=== PATIENT | female | born 1930 | race Caucasian/White ===

== ENCOUNTER 2017-04-26 18:02 | Emergency (ER) | payer MEDICARE ==
[~2017-04-26] VITALS: Ht 162.6 cm; Wt 45.4 kg
[2017-04-26 18:07] VITALS: BP_SYST 138
[2017-04-26] MEDS ORDERED: TETRACAINE HCL 0.5% OPHTHALMIC DROPS 15 ML OP ONE (19:15)
[2017-04-26] MEDS ORDERED: IBUPROFEN 400 MG TABLET PO ONE (19:15)
[2017-04-26] MEDS ORDERED: GENTAMICIN SULFATE 0.3%, 3.5 GM EYE OINT. OP ONE (20:00)
[2017-04-26 20:55] VITALS: BP_SYST 138
== END 2017-04-26 20:55 | disposition home or self-care (01) ==
LOC: SED 18:02
DX: S05.02XA Injury of conjunctiva and corneal abrasion without foreign body, left eye, initial encounter (principal); S05.01XA Injury of conjunctiva and corneal abrasion without foreign body, right eye, initial encounter; R03.0 Elevated blood-pressure reading, without diagnosis of hypertension; E11.9 Type 2 diabetes mellitus without complications; X58.XXXA Exposure to other specified factors, initial encounter; Y93.89 Activity, other specified; Y92.89 Other specified places as the place of occurrence of the external cause; Y99.8 Other external cause status
CPT/HCPCS: 99283

== ENCOUNTER 2017-05-10 12:37 | Inpatient (IN) | payer MEDICARE ==
[~2017-05-10] VITALS: Ht 157.5 cm; Wt 59.0 kg
[2017-05-10 12:37] VITALS: BP_SYST 154
[2017-05-10 13:33] LABS: BILIRUBIN,URINE NEGATIVE (NEGATIVE); CLARITY/URINE HAZY (CLEAR); COLOR,URINE YELLOW (YELLOW); GLUCOSE,URINE NEGATIVE (NEGATIVE); KETONES,URINE TRACE (NEGATIVE); LEUKOCYTE ESTERASE ,URINE 2+ (NEGATIVE); NITRITE, URINE NEGATIVE (NEGATIVE); PH,URINE 5.5 (5.0-8.0); PROTEIN URINE NEGATIVE (NEGATIVE); UROBILINOGEN,URINE 0.2 (0.2-1.0)
[2017-05-10 13:39] LABS: BLOOD, URINE TRACE (NEGATIVE)
[2017-05-10 13:40] LABS: BASOPHILS % (AUTO) 0.1 % (0.0-2.0); EOSINOPHILS % (AUTO) 0.1 % (0.0-4.0); HEMATOCRIT 32.6 % (36-48); LYMPHOCYTES # (AUTO) 1.2 K/uL (1.0-5.5); LYMPHOCYTES % (AUTO) 11.2 % (20.5-51.5); MEAN CORPUSCULAR HEMOGLOBIN 30 pg (27-31); MEAN CORPUSCULAR HGB CONC 34 % (32-36); MEAN CORPUSCULAR VOLUME 90 fL (79.0-98.0); MONOCYTES # (AUTO) 0.5 K/uL (0.0-1.0); MONOCYTES % (AUTO) 4.4 % (1.7-9.3); NEUTROPHILS # (AUTO) 9.1 K/uL (1.8-7.7); NEUTROPHILS % (AUTO) 84.2 % (40.0-70.0); PLATELET COUNT (AUTO) 298 K/uL (130-430); RED BLOOD CELL COUNT(AUTO) 3.63 MIL/uL (4.2-6.2); WHITE BLOOD COUNT (AUTO) 10.8 K/uL (4.8-10.8)
[2017-05-10 13:45] LABS: ANION GAP 15 (5-15); CALCIUM 9.2 mg/dL (8.4-11.0); CHLORIDE 87 mmol/L (98-107); CREATININE 1.02 mg/dL (0.55-1.30); GLUCOSE 154 mg/dL (70-99); POTASSIUM 3.6 mmol/L (3.5-5.1); SODIUM SERUM 123 mmol/L (136-145); UREA NITROGEN, BLOOD 17 mg/dL (8-21)
[2017-05-10 13:52] LABS: BACTERIA,URINE MANY /HPF (None Seen); MUCUS,URINE 1+ /LPF (None Seen); WBC,URINE 20-50 /HPF (0-3)
[2017-05-10 13:58] LABS: BARBITURATE, URINE NEGATIVE (NEG <=200); BENZODIAZEPINE, URINE NEGATIVE (NEG <=150); CANNABINOID, URINE NEGATIVE (NEG <=50); COCAINE, URINE NEGATIVE (NEG <=150); METHAMPHETAMINES SCREEN,URINE POSITIVE (NEG <=500); OPIATE, URINE NEGATIVE (NEG <=100); PHENCYCLIDINE SCREEN,URINE NEGATIVE (NEG <=25); UR TRICYCLIC ANTIDEPRESSANTS NEGATIVE (NEG <=300); URINE AMPHETAMINE NEGATIVE (NEG <=500); URINE METHADONE NEGATIVE (NEG <=200); URINE OXYCODONE SCREEN NEGATIVE (NEG <=100); URINE PROPOXYPHENE SCREEN NEGATIVE (NEG <=300)
[2017-05-10 14:01] LABS: ALANINE AMINOTRANSFERASE 14 U/L (12-78); ALBUMIN 3.5 g/dL (3.4-4.8); ASPARTATE AMINOTRANSFERASE 23 U/L (10-37); FREE T4 (FREE THYROXINE) 1.1 ng/dL (0.6-1.6); TOTAL BILIRUBIN 1.1 mg/dL (0.0-1.0); TOTAL PROTEIN, SERUM 7.8 g/dL (6.4-8.3)
[2017-05-10 14:02] LABS: ALCOHOL, BLOOD < 3 mg/dL (<10)
[2017-05-10 14:05] LABS: INR 1.1 (0.8-1.2); PROTHROMBIN TIME 11.5 SECS (9.5-12.5)
[2017-05-10] MEDS ORDERED: NS 500 ML IV ONE ×2 (14:45)
[2017-05-10] MEDS ORDERED: PIPERACILLIN/TAZO 3.375 GM in NS 50 ML IV ONE (14:45)
[2017-05-10] MEDS ORDERED: LOSA50TA3 PO (15:16)
[2017-05-10] MEDS ORDERED: ALEN70TA27 PO (15:16)
[2017-05-10] MEDS ORDERED: ASA81 PO (15:16)
[2017-05-10] MEDS ORDERED: LIP20 PO (15:16)
[2017-05-10] MEDS ORDERED: PIPERACILLIN/TAZOBACTAM 3.375 GM/VIAL (ZOSYN) IV ONE (15:30)
[2017-05-10 15:44] VITALS: BP_SYST 141
[2017-05-10] MEDS ORDERED: ALENDRONATE SODIUM 70 MG TABLET (FOSAMAX) PO SCH (16:30)
[2017-05-10] MEDS ORDERED: DEXTROSE 50% JECT 50 ML DISP.SYRIN IVP PRN (17:00)
[2017-05-10] MEDS ORDERED: ZOLPIDEM TARTRATE 5 MG TABLET PO PRN (17:00)
[2017-05-10] MEDS ORDERED: METF-510 PO (17:19)
[2017-05-10 19:30] VITALS: BP_SYST 141
[2017-05-10] MEDS: cefTRIAXone 1 GM in D5W 50 ML IV SCH (20:42)
[2017-05-10] MEDS: POTASSIUM CHLORIDE 30 MEQ in NACL 0.9% 1,000 ML IV SCH (20:44)
[2017-05-10] MEDS: LACTOBACILLUS RHAMNOSUS GG 1 CAP CAPSULE PO SCH (20:53)
[2017-05-10] MEDS: INSULIN REGULAR, HUMAN 100 UNITS/ML, 10 ML VIAL (novoLIN R) SUBCUT PRN (20:59)
[2017-05-10] MEDS: LEVOFLOXACIN 500 MG/D5W 100 ML IV SCH (21:23)
[2017-05-11 00:16] VITALS: BP_SYST 125
[2017-05-11 04:00] VITALS: BP_SYST 115
[2017-05-11 08:00] VITALS: BP_SYST 128
[2017-05-11] MEDS: POTASSIUM CHLORIDE 30 MEQ in NACL 0.9% 1,000 ML IV SCH ×3 (10:05→23:29)
[2017-05-11] MEDS: ATORVASTATIN 20 MG TABLET PO SCH (10:06)
[2017-05-11] MEDS: ASPIRIN 81 MG TAB.CHEW PO SCH (10:06)
[2017-05-11] MEDS: LACTOBACILLUS RHAMNOSUS GG 1 CAP CAPSULE PO SCH ×2 (10:06→21:25)
[2017-05-11] MEDS: LOSARTAN POTASSIUM 50 MG TABLET (COZAAR) PO SCH (10:07)
[2017-05-11 12:09] VITALS: BP_SYST 140
[2017-05-11 12:23] LABS: BASOPHILS % (AUTO) 0.1 % (0.0-2.0); EOSINOPHILS # (AUTO) 0.1 K/uL (0.0-0.4); EOSINOPHILS % (AUTO) 0.7 % (0.0-4.0); HEMATOCRIT 32.1 % (36-48); HEMOGLOBIN 10.7 g/dL (12.0-16.0); LYMPHOCYTES # (AUTO) 1.6 K/uL (1.0-5.5); LYMPHOCYTES % (AUTO) 18.4 % (20.5-51.5); MEAN CORPUSCULAR HEMOGLOBIN 30 pg (27-31); MEAN CORPUSCULAR HGB CONC 33 % (32-36); MEAN CORPUSCULAR VOLUME 91 fL (79.0-98.0); MONOCYTES # (AUTO) 0.8 K/uL (0.0-1.0); MONOCYTES % (AUTO) 9.3 % (1.7-9.3); NEUTROPHILS % (AUTO) 71.5 % (40.0-70.0); PLATELET COUNT (AUTO) 299 K/uL (130-430); RED BLOOD CELL COUNT(AUTO) 3.55 MIL/uL (4.2-6.2); RED CELL DISTRIBUTION WIDTH 13.1 % (9.0-15.0); WHITE BLOOD COUNT (AUTO) 8.5 K/uL (4.8-10.8)
[2017-05-11 12:31] LABS: ANION GAP 5 (5-15); CALCIUM 8.3 mg/dL (8.4-11.0); CHLORIDE 100 mmol/L (98-107); CREATININE 0.81 mg/dL (0.55-1.30); GLUCOSE 128 mg/dL (70-99); POTASSIUM 4.2 mmol/L (3.5-5.1); SODIUM SERUM 131 mmol/L (136-145); UREA NITROGEN, BLOOD 12 mg/dL (8-21)
[2017-05-11 16:12] VITALS: BP_SYST 125
[2017-05-11] MEDS: cefTRIAXone 1 GM in D5W 50 ML IV SCH (17:19)
[2017-05-11] MEDS: LEVOFLOXACIN 500 MG/D5W 100 ML IV SCH (18:43)
[2017-05-11 20:00] VITALS: BP_SYST 135
[2017-05-11] MEDS: INSULIN REGULAR, HUMAN 100 UNITS/ML, 10 ML VIAL (novoLIN R) SUBCUT PRN (21:31)
[2017-05-12] VITALS (7 sets, daily range): BP systolic 122–153
[2017-05-12] MEDS: POTASSIUM CHLORIDE 30 MEQ in NACL 0.9% 1,000 ML IV SCH ×2 (05:18→21:58)
[2017-05-12] MEDS: INSULIN REGULAR, HUMAN 100 UNITS/ML, 10 ML VIAL (novoLIN R) SUBCUT PRN ×3 (06:07→22:10)
[2017-05-12] MEDS: ATORVASTATIN 20 MG TABLET PO SCH (09:50)
[2017-05-12] MEDS: LACTOBACILLUS RHAMNOSUS GG 1 CAP CAPSULE PO SCH ×2 (09:50→21:59)
[2017-05-12] MEDS: LOSARTAN POTASSIUM 50 MG TABLET (COZAAR) PO SCH (10:01)
[2017-05-12] MEDS: ASPIRIN 81 MG TAB.CHEW PO SCH (10:01)
[2017-05-12] MEDS ORDERED: PIPERACILLIN/TAZO 3.375/DEX-IS 50 ML IV SCH (14:00)
[2017-05-12 14:24] LABS: BASOPHILS % (AUTO) 0.4 % (0.0-2.0); EOSINOPHILS # (AUTO) 0.1 K/uL (0.0-0.4); EOSINOPHILS % (AUTO) 0.9 % (0.0-4.0); HEMOGLOBIN 10.7 g/dL (12.0-16.0); LYMPHOCYTES # (AUTO) 1.7 K/uL (1.0-5.5); LYMPHOCYTES % (AUTO) 19.3 % (20.5-51.5); MEAN CORPUSCULAR HEMOGLOBIN 30 pg (27-31); MEAN CORPUSCULAR HGB CONC 34 % (32-36); MEAN CORPUSCULAR VOLUME 89 fL (79.0-98.0); MONOCYTES # (AUTO) 0.7 K/uL (0.0-1.0); MONOCYTES % (AUTO) 7.5 % (1.7-9.3); NEUTROPHILS # (AUTO) 6.4 K/uL (1.8-7.7); NEUTROPHILS % (AUTO) 71.9 % (40.0-70.0); PLATELET COUNT (AUTO) 296 K/uL (130-430); RED BLOOD CELL COUNT(AUTO) 3.58 MIL/uL (4.2-6.2); RED CELL DISTRIBUTION WIDTH 13.1 % (9.0-15.0); WHITE BLOOD COUNT (AUTO) 8.9 K/uL (4.8-10.8)
[2017-05-12 14:26] LABS: ANION GAP 7 (5-15); CALCIUM 8.2 mg/dL (8.4-11.0); CHLORIDE 100 mmol/L (98-107); CREATININE 0.98 mg/dL (0.55-1.30); GLUCOSE 260 mg/dL (70-99); POTASSIUM 4.4 mmol/L (3.5-5.1); SODIUM SERUM 130 mmol/L (136-145); UREA NITROGEN, BLOOD 14 mg/dL (8-21)
[2017-05-12] MEDS: CEFEPIME 1 GM in D5W 50 ML IV SCH (21:58)
[2017-05-13] VITALS (8 sets, daily range): BP systolic 97–152
[2017-05-13] MEDS: ACETAMINOPHEN 325 MG TABLET PO PRN (02:15)
[2017-05-13] MEDS: INSULIN REGULAR, HUMAN 100 UNITS/ML, 10 ML VIAL (novoLIN R) SUBCUT PRN ×3 (07:03→20:36)
[2017-05-13] MEDS: CEFEPIME 1 GM in D5W 50 ML IV SCH ×2 (09:53→20:28)
[2017-05-13] MEDS: LACTOBACILLUS RHAMNOSUS GG 1 CAP CAPSULE PO SCH ×2 (10:42→20:28)
[2017-05-13] MEDS: ASPIRIN 81 MG TAB.CHEW PO SCH (10:43)
[2017-05-13] MEDS: ATORVASTATIN 20 MG TABLET PO SCH (10:43)
[2017-05-13] MEDS: POTASSIUM CHLORIDE 30 MEQ in NACL 0.9% 1,000 ML IV SCH ×2 (12:01→20:38)
[2017-05-13] MEDS: LOSARTAN POTASSIUM 50 MG TABLET (COZAAR) PO SCH (12:20)
[2017-05-14 05:48] VITALS: BP_SYST 133
[2017-05-14] MEDS: INSULIN REGULAR, HUMAN 100 UNITS/ML, 10 ML VIAL (novoLIN R) SUBCUT PRN ×3 (06:26→22:05)
[2017-05-14] MEDS: metFORMIN HCL 500 MG TABLET PO SCH ×2 (06:27→17:36)
[2017-05-14 08:15] VITALS: BP_SYST 130
[2017-05-14] MEDS: POTASSIUM CHLORIDE 30 MEQ in NACL 0.9% 1,000 ML IV SCH (09:42)
[2017-05-14] MEDS: CEFEPIME 1 GM in D5W 50 ML IV SCH ×2 (09:43→21:12)
[2017-05-14] MEDS: ASPIRIN 81 MG TAB.CHEW PO SCH (09:43)
[2017-05-14] MEDS: LACTOBACILLUS RHAMNOSUS GG 1 CAP CAPSULE PO SCH ×2 (09:43→21:36)
[2017-05-14] MEDS: ATORVASTATIN 20 MG TABLET PO SCH (09:43)
[2017-05-14] MEDS: LOSARTAN POTASSIUM 50 MG TABLET (COZAAR) PO SCH (09:46)
[2017-05-14 12:53] VITALS: BP_SYST 126
[2017-05-14 16:08] VITALS: BP_SYST 123
[2017-05-14] MEDS: traMADol HCL HCL 50 MG TABLET (ULTRAM) PO PRN (20:06)
[2017-05-14] MEDS: KETOROLAC TROMETHAMINE 15 MG VIAL IVP PRN (22:30)
[2017-05-15] MEDS: POTASSIUM CHLORIDE 30 MEQ in NACL 0.9% 1,000 ML IV SCH ×3 (00:56→21:32)
[2017-05-15 01:01] VITALS: BP_SYST 133
[2017-05-15 05:19] VITALS: BP_SYST 131
[2017-05-15] MEDS: metFORMIN HCL 500 MG TABLET PO SCH ×2 (06:19→17:28)
[2017-05-15 08:00] VITALS: BP_SYST 108
[2017-05-15] MEDS: ATORVASTATIN 20 MG TABLET PO SCH (09:11)
[2017-05-15] MEDS: LACTOBACILLUS RHAMNOSUS GG 1 CAP CAPSULE PO SCH ×2 (09:11→22:11)
[2017-05-15] MEDS: ASPIRIN 81 MG TAB.CHEW PO SCH (09:11)
[2017-05-15] MEDS: LOSARTAN POTASSIUM 50 MG TABLET (COZAAR) PO SCH (09:12)
[2017-05-15] MEDS: traMADol HCL HCL 50 MG TABLET (ULTRAM) PO PRN (09:13)
[2017-05-15] MEDS: CEFEPIME 1 GM in D5W 50 ML IV SCH ×2 (09:55→21:32)
[2017-05-15] MEDS: KETOROLAC TROMETHAMINE 15 MG VIAL IVP PRN ×2 (10:27→23:16)
[2017-05-15] MEDS: INSULIN REGULAR, HUMAN 100 UNITS/ML, 10 ML VIAL (novoLIN R) SUBCUT PRN ×2 (12:04→17:35)
[2017-05-15 12:24] VITALS: BP_SYST 118
[2017-05-15] MEDS: BACLOFEN 10 MG TABLET PO SCH ×3 (13:00→22:13)
[2017-05-15] MEDS ORDERED: PANTOPRAZOLE GRANULES PACKET 40 MG GT ONE (14:45)
[2017-05-15 16:12] VITALS: BP_SYST 100
[2017-05-15 20:00] VITALS: BP_SYST 100
[2017-05-16] VITALS (10 sets, daily range): BP systolic 82–151
[2017-05-16] MEDS: metFORMIN HCL 500 MG TABLET PO SCH (06:13)
[2017-05-16] MEDS: LOSARTAN POTASSIUM 50 MG TABLET (COZAAR) PO SCH (09:00)
[2017-05-16] MEDS: ATORVASTATIN 20 MG TABLET PO SCH (09:30)
[2017-05-16] MEDS: PANTOPRAZOLE GRANULES PACKET 40 MG GT SCH (09:30)
[2017-05-16] MEDS: CEFEPIME 1 GM in D5W 50 ML IV SCH ×2 (09:30→21:28)
[2017-05-16] MEDS: LACTOBACILLUS RHAMNOSUS GG 1 CAP CAPSULE PO SCH ×2 (09:31→21:27)
[2017-05-16] MEDS: ASPIRIN 81 MG TAB.CHEW PO SCH (09:31)
[2017-05-16] MEDS: BACLOFEN 10 MG TABLET PO SCH ×4 (09:31→21:27)
[2017-05-16] MEDS: POTASSIUM CHLORIDE 30 MEQ in NACL 0.9% 1,000 ML IV SCH (09:38)
[2017-05-16 10:49] LABS: PROTHROMBIN TIME 11.1 SECS (9.5-12.5)
[2017-05-16] MEDS: INSULIN REGULAR, HUMAN 100 UNITS/ML, 10 ML VIAL (novoLIN R) SUBCUT PRN ×2 (12:57→22:07)
[2017-05-16] MEDS: KETOROLAC TROMETHAMINE 15 MG VIAL IVP PRN (13:15)
[2017-05-16 15:05] LABS: BASOPHILS % (AUTO) 0.2 % (0.0-2.0); EOSINOPHILS # (AUTO) 0.2 K/uL (0.0-0.4); EOSINOPHILS % (AUTO) 1.8 % (0.0-4.0); HEMATOCRIT 29.5 % (36-48); HEMOGLOBIN 9.6 g/dL (12.0-16.0); LYMPHOCYTES # (AUTO) 1.4 K/uL (1.0-5.5); MEAN CORPUSCULAR HEMOGLOBIN 30 pg (27-31); MEAN CORPUSCULAR HGB CONC 33 % (32-36); MEAN CORPUSCULAR VOLUME 93 fL (79.0-98.0); MONOCYTES # (AUTO) 0.8 K/uL (0.0-1.0); MONOCYTES % (AUTO) 6.2 % (1.7-9.3); NEUTROPHILS # (AUTO) 10.3 K/uL (1.8-7.7); NEUTROPHILS % (AUTO) 80.8 % (40.0-70.0); PLATELET COUNT (AUTO) 245 K/uL (130-430); RED BLOOD CELL COUNT(AUTO) 3.19 MIL/uL (4.2-6.2); WHITE BLOOD COUNT (AUTO) 12.7 K/uL (4.8-10.8)
[2017-05-16 15:20] LABS: ANION GAP 4 (5-15); CALCIUM 7.6 mg/dL (8.4-11.0); CHLORIDE 102 mmol/L (98-107); CREATININE 0.88 mg/dL (0.55-1.30); GLUCOSE 176 mg/dL (70-99); POTASSIUM 5.3 mmol/L (3.5-5.1); SODIUM SERUM 125 mmol/L (136-145); UREA NITROGEN, BLOOD 20 mg/dL (8-21)
[2017-05-16 15:33] LABS: ALANINE AMINOTRANSFERASE 17 U/L (12-78); ALBUMIN 2.4 g/dL (3.4-4.8); ASPARTATE AMINOTRANSFERASE 32 U/L (10-37); TOTAL BILIRUBIN 0.6 mg/dL (0.0-1.0); TOTAL PROTEIN, SERUM 6.4 g/dL (6.4-8.3)
[2017-05-16] MEDS ORDERED: TOLVAPTAN 15 MG TABLET PO ONE (16:00)
[2017-05-16] MEDS ORDERED: *LOVENOX 1MG/KG Q12H/PHARMACY XX PRN (16:00)
[2017-05-16] MEDS ORDERED: IOHEXOL 350 mgI/mL, 150 ML INFUS..BTL IV ONE (17:14)
[2017-05-16] MEDS: ACETAMINOPHEN 325 MG TABLET PO PRN (18:34)
[2017-05-16] MEDS: ENOXAPARIN SODIUM 60 MG/0.6 ML SYRINGE SUBCUT SCH (18:37)
[2017-05-16] MEDS: traMADol HCL HCL 50 MG TABLET (ULTRAM) PO PRN (21:54)
[2017-05-17] VITALS (14 sets, daily range): BP systolic 91–138
[2017-05-17] MEDS: ENOXAPARIN SODIUM 60 MG/0.6 ML SYRINGE SUBCUT SCH ×2 (06:21→17:50)
[2017-05-17] MEDS: INSULIN REGULAR, HUMAN 100 UNITS/ML, 10 ML VIAL (novoLIN R) SUBCUT PRN ×3 (06:21→22:21)
[2017-05-17 06:47] LABS: BASOPHILS % (AUTO) 0.2 % (0.0-2.0); EOSINOPHILS # (AUTO) 0.1 K/uL (0.0-0.4); EOSINOPHILS % (AUTO) 1.1 % (0.0-4.0); HEMATOCRIT 28.7 % (36-48); HEMOGLOBIN 9.5 g/dL (12.0-16.0); LYMPHOCYTES % (AUTO) 9.1 % (20.5-51.5); MEAN CORPUSCULAR HEMOGLOBIN 30 pg (27-31); MEAN CORPUSCULAR HGB CONC 33 % (32-36); MEAN CORPUSCULAR VOLUME 91 fL (79.0-98.0); MONOCYTES # (AUTO) 0.5 K/uL (0.0-1.0); NEUTROPHILS # (AUTO) 9.9 K/uL (1.8-7.7); NEUTROPHILS % (AUTO) 85.6 % (40.0-70.0); PLATELET COUNT (AUTO) 250 K/uL (130-430); RED BLOOD CELL COUNT(AUTO) 3.16 MIL/uL (4.2-6.2); RED CELL DISTRIBUTION WIDTH 13.2 % (9.0-15.0); WHITE BLOOD COUNT (AUTO) 11.5 K/uL (4.8-10.8)
[2017-05-17 07:37] LABS: ANION GAP 8 (5-15); ASPARTATE AMINOTRANSFERASE 53 U/L (10-37); CHLORIDE 102 mmol/L (98-107); CREATININE 0.86 mg/dL (0.55-1.30); GLUCOSE 142 mg/dL (70-99); SODIUM SERUM 129 mmol/L (136-145); TOTAL BILIRUBIN 0.7 mg/dL (0.0-1.0); UREA NITROGEN, BLOOD 19 mg/dL (8-21)
[2017-05-17 07:38] LABS: ALANINE AMINOTRANSFERASE 37 U/L (12-78); ALBUMIN 2.4 g/dL (3.4-4.8); TOTAL PROTEIN, SERUM 6.5 g/dL (6.4-8.3)
[2017-05-17] MEDS ORDERED: D5/0.45 NS 1,000 ML IV SCH (09:15)
[2017-05-17] MEDS: CEFEPIME 1 GM in D5W 50 ML IV SCH ×2 (09:26→22:02)
[2017-05-17] MEDS: ATORVASTATIN 20 MG TABLET PO SCH (09:30)
[2017-05-17] MEDS: PANTOPRAZOLE GRANULES PACKET 40 MG GT SCH (09:30)
[2017-05-17] MEDS: LACTOBACILLUS RHAMNOSUS GG 1 CAP CAPSULE PO SCH ×2 (09:30→22:03)
[2017-05-17] MEDS: BACLOFEN 10 MG TABLET PO SCH ×4 (09:30→22:03)
[2017-05-17] MEDS: ASPIRIN 81 MG TAB.CHEW PO SCH (09:30)
[2017-05-17] MEDS ORDERED: D5NS 1,000 ML IV SCH (17:15)
[2017-05-17] MEDS: NACL 0.9% 1,000 ML IV SCH (18:18)
[2017-05-17 19:34] LABS: BILIRUBIN,URINE NEGATIVE (NEGATIVE); BLOOD, URINE 2+ (NEGATIVE); CLARITY/URINE CLOUDY (CLEAR); COLOR,URINE YELLOW (YELLOW); GLUCOSE,URINE NEGATIVE (NEGATIVE); KETONES,URINE NEGATIVE (NEGATIVE); LEUKOCYTE ESTERASE ,URINE 3+ (NEGATIVE); NITRITE, URINE NEGATIVE (NEGATIVE); PROTEIN URINE TRACE (NEGATIVE); UROBILINOGEN,URINE 0.2 (0.2-1.0)
[2017-05-17 19:48] LABS: BACTERIA,URINE FEW /HPF (None Seen)
[2017-05-17 19:49] LABS: MUCUS,URINE None Seen /LPF (None Seen); WBC,URINE 20-50 /HPF (0-3); YEAST,URINE Many /HPF (None Seen)
[2017-05-18] VITALS (7 sets, daily range): BP systolic 92–115
[2017-05-18] MEDS: ENOXAPARIN SODIUM 60 MG/0.6 ML SYRINGE SUBCUT SCH (06:15)
[2017-05-18] MEDS: NACL 0.9% 1,000 ML IV SCH ×2 (06:16→21:12)
[2017-05-18 07:36] LABS: BASOPHILS % (AUTO) 0.5 % (0.0-2.0); EOSINOPHILS # (AUTO) 0.3 K/uL (0.0-0.4); EOSINOPHILS % (AUTO) 3.6 % (0.0-4.0); HEMATOCRIT 28.4 % (36-48); HEMOGLOBIN 9.2 g/dL (12.0-16.0); LYMPHOCYTES # (AUTO) 1.1 K/uL (1.0-5.5); LYMPHOCYTES % (AUTO) 14.4 % (20.5-51.5); MEAN CORPUSCULAR HEMOGLOBIN 30 pg (27-31); MEAN CORPUSCULAR HGB CONC 33 % (32-36); MEAN CORPUSCULAR VOLUME 91 fL (79.0-98.0); MONOCYTES # (AUTO) 0.7 K/uL (0.0-1.0); MONOCYTES % (AUTO) 8.9 % (1.7-9.3); NEUTROPHILS # (AUTO) 5.6 K/uL (1.8-7.7); NEUTROPHILS % (AUTO) 72.6 % (40.0-70.0); PLATELET COUNT (AUTO) 256 K/uL (130-430); RED BLOOD CELL COUNT(AUTO) 3.11 MIL/uL (4.2-6.2); WHITE BLOOD COUNT (AUTO) 7.7 K/uL (4.8-10.8)
[2017-05-18 07:50] LABS: ANION GAP 8 (5-15); CALCIUM 8.3 mg/dL (8.4-11.0); CHLORIDE 107 mmol/L (98-107); CREATININE 0.86 mg/dL (0.55-1.30); GLUCOSE 136 mg/dL (70-99); POTASSIUM 4.4 mmol/L (3.5-5.1); SODIUM SERUM 139 mmol/L (136-145); UREA NITROGEN, BLOOD 13 mg/dL (8-21)
[2017-05-18 08:12] LABS: ALANINE AMINOTRANSFERASE 30 U/L (12-78); ALBUMIN 2.3 g/dL (3.4-4.8); ASPARTATE AMINOTRANSFERASE 29 U/L (10-37); FREE T4 (FREE THYROXINE) 1.2 ng/dl (0.8-1.5); THYROID STIMULATING HORMONE 1.95 uIu/mL (0.36-3.74); TOTAL BILIRUBIN 0.5 mg/dL (0.0-1.0); TOTAL PROTEIN, SERUM 6.1 g/dL (6.4-8.3)
[2017-05-18 08:32] LABS: IRON (SERUM) 24 mcg/dL (37-145); TOTAL IRON BIND. CAPACITY 199 ug/dL (250-450)
[2017-05-18] MEDS: ATORVASTATIN 20 MG TABLET PO SCH (09:01)
[2017-05-18] MEDS: BACLOFEN 10 MG TABLET PO SCH ×4 (09:01→21:10)
[2017-05-18] MEDS: PANTOPRAZOLE GRANULES PACKET 40 MG GT SCH (09:01)
[2017-05-18] MEDS: CEFEPIME 1 GM in D5W 50 ML IV SCH ×2 (09:01→21:11)
[2017-05-18] MEDS: ASPIRIN 81 MG TAB.CHEW PO SCH (09:02)
[2017-05-18] MEDS: LACTOBACILLUS RHAMNOSUS GG 1 CAP CAPSULE PO SCH ×2 (09:02→21:09)
[2017-05-18] MEDS ORDERED: APIXABAN 2.5 MG TABLET PO ONE (11:00)
[2017-05-18 11:07] LABS: CHLORIDE,URINE RANDOM 55 mmol/L (55-125); URINE SODIUM, RANDOM 39 mmol/L (40-220)
[2017-05-18] MEDS: INSULIN REGULAR, HUMAN 100 UNITS/ML, 10 ML VIAL (novoLIN R) SUBCUT PRN ×2 (13:37→21:04)
[2017-05-18] MEDS: SOD FERRIC GLUC COMPLEX/SUC 125 MG in NS 100 ML IV SCH (18:52)
[2017-05-18] MEDS: APIXABAN 2.5 MG TABLET PO SCH (21:10)
[2017-05-19] VITALS: BP_SYST 115
[2017-05-19 04:28] VITALS: BP_SYST 132
[2017-05-19] MEDS: INSULIN REGULAR, HUMAN 100 UNITS/ML, 10 ML VIAL (novoLIN R) SUBCUT PRN ×4 (06:24→21:01)
[2017-05-19] MEDS: traMADol HCL HCL 50 MG TABLET (ULTRAM) PO PRN (06:25)
[2017-05-19 07:22] LABS: BASOPHILS % (AUTO) 0.2 % (0.0-2.0); EOSINOPHILS # (AUTO) 0.2 K/uL (0.0-0.4); EOSINOPHILS % (AUTO) 1.7 % (0.0-4.0); HEMATOCRIT 28.3 % (36-48); HEMOGLOBIN 9.4 g/dL (12.0-16.0); LYMPHOCYTES # (AUTO) 1.3 K/uL (1.0-5.5); LYMPHOCYTES % (AUTO) 13.6 % (20.5-51.5); MEAN CORPUSCULAR HEMOGLOBIN 31 pg (27-31); MEAN CORPUSCULAR HGB CONC 33 % (32-36); MEAN CORPUSCULAR VOLUME 92 fL (79.0-98.0); MONOCYTES # (AUTO) 0.9 K/uL (0.0-1.0); MONOCYTES % (AUTO) 9.5 % (1.7-9.3); NEUTROPHILS # (AUTO) 7.1 K/uL (1.8-7.7); PLATELET COUNT (AUTO) 267 K/uL (130-430); RED BLOOD CELL COUNT(AUTO) 3.07 MIL/uL (4.2-6.2); WHITE BLOOD COUNT (AUTO) 9.5 K/uL (4.8-10.8)
[2017-05-19 07:32] LABS: ANION GAP 5 (5-15); CALCIUM 8.5 mg/dL (8.4-11.0); CHLORIDE 105 mmol/L (98-107); CHOLESTEROL 98 mg/dL (<200); CREATININE 0.86 mg/dL (0.55-1.30); GLUCOSE 174 mg/dL (70-99); HDL CHOLESTEROL 34 mg/dL (>55); LDL CHOLESTEROL 49 mg/dL (<100); POTASSIUM 4.8 mmol/L (3.5-5.1); SODIUM SERUM 136 mmol/L (136-145); TRIGLYCERIDES 82 mg/dL (30-150); UREA NITROGEN, BLOOD 15 mg/dL (8-21)
[2017-05-19 08:00] VITALS: BP_SYST 147
[2017-05-19] MEDS: APIXABAN 2.5 MG TABLET PO SCH ×2 (08:47→20:57)
[2017-05-19] MEDS: PANTOPRAZOLE GRANULES PACKET 40 MG GT SCH (08:47)
[2017-05-19] MEDS: CEFEPIME 1 GM in D5W 50 ML IV SCH (08:47)
[2017-05-19] MEDS: BACLOFEN 10 MG TABLET PO SCH ×4 (08:47→20:57)
[2017-05-19] MEDS: LACTOBACILLUS RHAMNOSUS GG 1 CAP CAPSULE PO SCH ×2 (08:47→20:57)
[2017-05-19] MEDS: ATORVASTATIN 20 MG TABLET PO SCH (08:47)
[2017-05-19] MEDS: ASPIRIN 81 MG TAB.CHEW PO SCH (08:47)
[2017-05-19 12:06] VITALS: BP_SYST 106
[2017-05-19 16:42] VITALS: BP_SYST 114
[2017-05-19] MEDS: metFORMIN HCL 500 MG TABLET PO SCH (17:38)
[2017-05-19] MEDS: SOD FERRIC GLUC COMPLEX/SUC 125 MG in NS 100 ML IV SCH (17:39)
[2017-05-19] MEDS ORDERED: WARFARIN SODIUM 2.5 MG TABLET PO SCH (18:00)
[2017-05-19 20:00] VITALS: BP_SYST 104
[2017-05-20 00:29] VITALS: BP_SYST 113
[2017-05-20 04:12] VITALS: BP_SYST 109
[2017-05-20] MEDS: INSULIN REGULAR, HUMAN 100 UNITS/ML, 10 ML VIAL (novoLIN R) SUBCUT PRN ×3 (06:06→22:06)
[2017-05-20 06:33] LABS: INR 1.1 (0.8-1.2); PROTHROMBIN TIME 12.3 SECS (9.5-12.5)
[2017-05-20 06:36] LABS: BASOPHILS % (AUTO) 0.3 % (0.0-2.0); EOSINOPHILS # (AUTO) 0.2 K/uL (0.0-0.4); EOSINOPHILS % (AUTO) 2.3 % (0.0-4.0); HEMATOCRIT 28.2 % (36-48); HEMOGLOBIN 9.6 g/dL (12.0-16.0); LYMPHOCYTES # (AUTO) 1.5 K/uL (1.0-5.5); LYMPHOCYTES % (AUTO) 16.4 % (20.5-51.5); MEAN CORPUSCULAR HEMOGLOBIN 31 pg (27-31); MEAN CORPUSCULAR HGB CONC 34 % (32-36); MEAN CORPUSCULAR VOLUME 91 fL (79.0-98.0); MONOCYTES # (AUTO) 0.7 K/uL (0.0-1.0); MONOCYTES % (AUTO) 7.5 % (1.7-9.3); NEUTROPHILS # (AUTO) 6.7 K/uL (1.8-7.7); NEUTROPHILS % (AUTO) 73.5 % (40.0-70.0); PLATELET COUNT (AUTO) 285 K/uL (130-430); RED CELL DISTRIBUTION WIDTH 13.1 % (9.0-15.0); WHITE BLOOD COUNT (AUTO) 9.1 K/uL (4.8-10.8)
[2017-05-20 07:02] LABS: ALANINE AMINOTRANSFERASE 22 U/L (12-78); ALBUMIN 2.4 g/dL (3.4-4.8); ANION GAP 5 (5-15); ASPARTATE AMINOTRANSFERASE 23 U/L (10-37); CALCIUM 9.1 mg/dL (8.4-11.0); CHLORIDE 105 mmol/L (98-107); CREATININE 0.76 mg/dL (0.55-1.30); GLUCOSE 133 mg/dL (70-99); PHOSPHORUS 3.2 mg/dL (2.7-4.5); SODIUM SERUM 137 mmol/L (136-145); THYROID STIMULATING HORMONE 1.62 uIu/mL (0.34-4.82); TOTAL BILIRUBIN 0.5 mg/dL (0.0-1.0); TOTAL PROTEIN, SERUM 6.6 g/dL (6.4-8.3); UREA NITROGEN, BLOOD 13 mg/dL (8-21)
[2017-05-20] MEDS: LACTOBACILLUS RHAMNOSUS GG 1 CAP CAPSULE PO SCH ×2 (08:08→22:00)
[2017-05-20] MEDS: BACLOFEN 10 MG TABLET PO SCH ×4 (08:08→22:00)
[2017-05-20] MEDS: ATORVASTATIN 20 MG TABLET PO SCH (08:08)
[2017-05-20] MEDS: metFORMIN HCL 500 MG TABLET PO SCH ×2 (08:08→17:05)
[2017-05-20] MEDS: APIXABAN 2.5 MG TABLET PO SCH ×2 (08:09→22:00)
[2017-05-20] MEDS: PANTOPRAZOLE GRANULES PACKET 40 MG GT SCH (08:09)
[2017-05-20 08:10] VITALS: BP_SYST 127
[2017-05-20 13:08] VITALS: BP_SYST 134
[2017-05-20 16:46] VITALS: BP_SYST 108
[2017-05-20] MEDS: SOD FERRIC GLUC COMPLEX/SUC 125 MG in NS 100 ML IV SCH (17:06)
[2017-05-20 20:00] VITALS: BP_SYST 133
[2017-05-21 01:41] VITALS: BP_SYST 129
[2017-05-21 06:17] VITALS: BP_SYST 119
[2017-05-21 08:10] VITALS: BP_SYST 127
[2017-05-21] MEDS: LACTOBACILLUS RHAMNOSUS GG 1 CAP CAPSULE PO SCH ×2 (08:30→21:11)
[2017-05-21] MEDS: metFORMIN HCL 500 MG TABLET PO SCH ×3 (08:30→18:00)
[2017-05-21] MEDS: ATORVASTATIN 20 MG TABLET PO SCH (08:30)
[2017-05-21] MEDS: BACLOFEN 10 MG TABLET PO SCH ×4 (08:31→21:11)
[2017-05-21] MEDS: PANTOPRAZOLE GRANULES PACKET 40 MG GT SCH (08:31)
[2017-05-21] MEDS: APIXABAN 2.5 MG TABLET PO SCH ×2 (08:31→21:11)
[2017-05-21] MEDS: INSULIN REGULAR, HUMAN 100 UNITS/ML, 10 ML VIAL (novoLIN R) SUBCUT PRN ×3 (11:39→21:15)
[2017-05-21 12:27] VITALS: BP_SYST 104
[2017-05-21 16:09] VITALS: BP_SYST 113
[2017-05-21] MEDS: SOD FERRIC GLUC COMPLEX/SUC 125 MG in NS 100 ML IV SCH (17:16)
[2017-05-21 20:00] VITALS: BP_SYST 133
[2017-05-21] MEDS ORDERED: ONDANSETRON HCL 4 MG/2 ML VIAL IVP PRN (23:45)
[2017-05-22 01:14] VITALS: BP_SYST 139
[2017-05-22 06:05] VITALS: BP_SYST 109
[2017-05-22] MEDS: INSULIN REGULAR, HUMAN 100 UNITS/ML, 10 ML VIAL (novoLIN R) SUBCUT PRN ×2 (06:27→21:49)
[2017-05-22 07:51] LABS: BASOPHILS % (AUTO) 0.2 % (0.0-2.0); EOSINOPHILS # (AUTO) 0.2 K/uL (0.0-0.4); EOSINOPHILS % (AUTO) 1.9 % (0.0-4.0); HEMATOCRIT 28.8 % (36-48); HEMOGLOBIN 9.7 g/dL (12.0-16.0); LYMPHOCYTES # (AUTO) 1.6 K/uL (1.0-5.5); LYMPHOCYTES % (AUTO) 15.3 % (20.5-51.5); MEAN CORPUSCULAR HEMOGLOBIN 31 pg (27-31); MEAN CORPUSCULAR HGB CONC 34 % (32-36); MEAN CORPUSCULAR VOLUME 92 fL (79.0-98.0); MONOCYTES # (AUTO) 0.9 K/uL (0.0-1.0); MONOCYTES % (AUTO) 8.3 % (1.7-9.3); NEUTROPHILS # (AUTO) 7.8 K/uL (1.8-7.7); NEUTROPHILS % (AUTO) 74.3 % (40.0-70.0); PLATELET COUNT (AUTO) 333 K/uL (130-430); RED BLOOD CELL COUNT(AUTO) 3.15 MIL/uL (4.2-6.2); RED CELL DISTRIBUTION WIDTH 13.2 % (9.0-15.0); WHITE BLOOD COUNT (AUTO) 10.5 K/uL (4.8-10.8)
[2017-05-22 08:02] LABS: ANION GAP 5 (5-15); CALCIUM 8.9 mg/dL (8.4-11.0); CHLORIDE 99 mmol/L (98-107); CREATININE 0.83 mg/dL (0.55-1.30); GLUCOSE 165 mg/dL (70-99); POTASSIUM 4.4 mmol/L (3.5-5.1); SODIUM SERUM 133 mmol/L (136-145); UREA NITROGEN, BLOOD 15 mg/dL (8-21)
[2017-05-22 08:05] LABS: INR 1.1 (0.8-1.2); PROTHROMBIN TIME 11.7 SECS (9.5-12.5)
[2017-05-22] MEDS: APIXABAN 2.5 MG TABLET PO SCH ×2 (09:34→21:45)
[2017-05-22] MEDS: ATORVASTATIN 20 MG TABLET PO SCH (09:34)
[2017-05-22] MEDS: PANTOPRAZOLE GRANULES PACKET 40 MG GT SCH (09:34)
[2017-05-22] MEDS: LACTOBACILLUS RHAMNOSUS GG 1 CAP CAPSULE PO SCH ×2 (09:35→21:45)
[2017-05-22] MEDS: BACLOFEN 10 MG TABLET PO SCH ×4 (09:35→21:45)
[2017-05-22] MEDS: metFORMIN HCL 500 MG TABLET PO SCH ×2 (09:36→20:29)
[2017-05-22 12:13] VITALS: BP_SYST 106
[2017-05-22 16:15] LABS: FOLATE (FOLIC ACID) 13.3 ng/mL (>3.0)
[2017-05-22 16:46] VITALS: BP_SYST 113
[2017-05-22] MEDS: SOD FERRIC GLUC COMPLEX/SUC 125 MG in NS 100 ML IV SCH (18:00)
[2017-05-22 19:35] VITALS: BP_SYST 116
[2017-05-23] VITALS: BP_SYST 116
[2017-05-23 04:22] VITALS: BP_SYST 114
[2017-05-23] MEDS ORDERED: ALENDRONATE SODIUM 5 MG TABLET PO SCH (07:00)
[2017-05-23] MEDS: PANTOPRAZOLE GRANULES PACKET 40 MG GT SCH (08:30)
[2017-05-23] MEDS: APIXABAN 2.5 MG TABLET PO SCH (08:31)
[2017-05-23] MEDS: LACTOBACILLUS RHAMNOSUS GG 1 CAP CAPSULE PO SCH (08:31)
[2017-05-23] MEDS: BACLOFEN 10 MG TABLET PO SCH ×2 (08:31→13:34)
[2017-05-23] MEDS: metFORMIN HCL 500 MG TABLET PO SCH (08:31)
[2017-05-23] MEDS: ATORVASTATIN 20 MG TABLET PO SCH (08:31)
[2017-05-23 08:38] VITALS: BP_SYST 110
[2017-05-23 12:29] VITALS: BP_SYST 116
[2017-05-23 15:38] VITALS: BP_SYST 110
[2017-05-23 17:14] VITALS: BP_SYST 110
== END 2017-05-23 17:45 | DRG 720 ==
LOC: SED 12:37 → STU 14:52 → SMU 05-11 17:41 → SIC 05-16 18:41 → STU 05-17 14:20 → SMU 05-20 12:45
PROVIDERS: ADMIT Internal Medicine; ATTEND Internal Medicine
PROC: 02HV33Z Insertion of Infusion Device into Superior Vena Cava, Percutaneous Approach (ICD-10-PCS; principal; 2017-05-16)
PROC: B548ZZA Ultrasonography of Superior Vena Cava, Guidance (ICD-10-PCS; 2017-05-16)
DX: A41.51 Sepsis due to Escherichia coli [E. coli] (principal); I26.99 Other pulmonary embolism without acute cor pulmonale; J96.90 Respiratory failure, unspecified, unspecified whether with hypoxia or hypercapnia; E43 Unspecified severe protein-calorie malnutrition; Q60.3 Renal hypoplasia, unilateral; D68.59 Other primary thrombophilia; E22.2 Syndrome of inappropriate secretion of antidiuretic hormone; E11.51 Type 2 diabetes mellitus with diabetic peripheral angiopathy without gangrene; F03.90 Unspecified dementia, unspecified severity, without behavioral disturbance, psychotic disturbance, mood disturbance, and anxiety; I95.9 Hypotension, unspecified; N12 Tubulo-interstitial nephritis, not specified as acute or chronic; B96.20 Unspecified Escherichia coli [E. coli] as the cause of diseases classified elsewhere; I10 Essential (primary) hypertension; N13.30 Unspecified hydronephrosis; E78.00 Pure hypercholesterolemia, unspecified; M47.9 Spondylosis, unspecified; E86.0 Dehydration; D63.8 Anemia in other chronic diseases classified elsewhere; E78.5 Hyperlipidemia, unspecified; K80.20 Calculus of gallbladder without cholecystitis without obstruction; K57.90 Diverticulosis of intestine, part unspecified, without perforation or abscess without bleeding; N31.9 Neuromuscular dysfunction of bladder, unspecified; Z16.24 Resistance to multiple antibiotics; Z87.440 Personal history of urinary (tract) infections; Z79.82 Long term (current) use of aspirin; Z79.899 Other long term (current) drug therapy; Z68.23 Body mass index [BMI] 23.0-23.9, adult; Z74.01 Bed confinement status
CPT/HCPCS: 36415; 70450-TC; 71010; 71275; 72072-TC; 74000-TC; 76770; 76856-TC; 80048; 80053; 80061; 80307; 81000-TC; 82140-TC; 82435-TC; 82533; 82570-TC; 82607; 82746; 82962; 83540-TC; 83550-TC; 83605; 83880; 83930-TC; 83935-TC; 84100-TC; 84302-TC; 84439; 84443-TC; 84484; 85025; 85610-TC; 85730-TC; 87040-TC; 87081; 87086; 87186-TC; 93005; 93306; 93970; 94760; 96361; 96365; 97110-GP; 97116-GP; 97530-GP; 99285; C1751; G0482; J0692; J0696; J1650; J1815; J1885; J1956; J2405; J2543; J2916; J3480; J7030; J7040; J7050; J7060; Q9967